=== PATIENT | male | born 1960 | race Caucasian/White ===

== ENCOUNTER 2016-09-06 03:39 | Emergency (ER) | payer SELFPAY ==
[~2016-09-06] VITALS: Ht 177.8 cm; Wt 71.4 kg
[2016-09-06] MEDS ORDERED: SODIUM CHLORIDE 0.9% 1,000 ML IV ONE (04:52)
[2016-09-06] MEDS ORDERED: SODIUM CHLORIDE 0.9% 1,000ML IVBOLUS ONE (05:00)
[2016-09-06] MEDS ORDERED: SODIUM CHLORIDE FLUSH 10ML SYR IVF ONE (05:00)
[2016-09-06 05:33] LABS: BLOOD UREA NITROGEN 19 mg/dL (7-18)
[2016-09-06 05:37] LABS: ASPARTATE AMINO TRANSFERASE 33 U/L (15-37)
[2016-09-06 05:50] VITALS: BP 120/82
[2016-09-06] MEDS ORDERED: PINK LADY ENEMA 1,000 ML PR ONE (07:00)
== END 2016-09-06 07:29 | disposition home or self-care (01) ==
LOC: ED 07:23
DX: R10.84 Generalized abdominal pain (principal); K59.00 Constipation, unspecified; F10.20 Alcohol dependence, uncomplicated
CPT/HCPCS: 36415; 74020; 80053; 81003; 85025; 96360; 96361; 99285; J7030